=== PATIENT | female | born 1970 | race Two or more races ===

== ENCOUNTER 2018-11-09 22:32 | Emergency (ER) | payer BC, MEDICAID ==
[~2018-11-09] VITALS: Ht 170.2 cm; Wt 141.0 kg
[2018-11-09] MEDS ORDERED: DIAZEPAM 5 MG TABLET PO ONE (23:00)
[2018-11-09] MEDS ORDERED: HYDROcodone/APAP 5/325 TABLET PO ONE (23:00)
--- NOTE | 2018-11-09 23:17 | NUR ---
pt back from radiology
[2018-11-09] MEDS ORDERED: DIAZEPAM 5 MG TABLET ONE (23:18)
[2018-11-09] MEDS ORDERED: HYDROcodone/APAP 5/325 TABLET ONE (23:18)
--- NOTE | 2018-11-09 23:23 | NUR ---
pt presents to ed with c/o left lower back pain radiating to left leg since she felt "pop" in back after slipping 5 days ago. neurovasc intact, pt denies bowel/bladder incontinence. awaiting radiology results and dispo.
--- NOTE | 2018-11-09 23:45 | NUR ---
Note shell in EDM - 11/09/18 at 2349 by KATHE splint placed by edt, cms intact s/p splint. pt given dc instructions and script, educated regarding rx for naproxen. pt amb to dc desk with steady gait, nadn at dc.
--- NOTE | 2018-11-09 23:49 | NUR ---
note undone, charted on wrong pt
--- NOTE | 2018-11-09 23:49 | NUR ---
report to PHILIPPE Pelayo. pt to have repeat BP assessment.
--- NOTE | 2018-11-09 23:49 | NUR ---
FSBG OF 140 OBTAINED PER PA REQUEST.
[2018-11-09 23:52] VITALS: BP 139/83
== END 2018-11-09 23:46 | disposition home or self-care (01) ==
LOC: ED 23:40
DX: S39.012A Strain of muscle, fascia and tendon of lower back, initial encounter (principal); I10 Essential (primary) hypertension; E78.00 Pure hypercholesterolemia, unspecified; E11.9 Type 2 diabetes mellitus without complications; M54.41 Lumbago with sciatica, right side; W01.0XXA Fall on same level from slipping, tripping and stumbling without subsequent striking against object, initial encounter; Y93.89 Activity, other specified; Y92.89 Other specified places as the place of occurrence of the external cause; Y99.8 Other external cause status
CPT/HCPCS: 72110; 99283